=== PATIENT | female | born 1985 ===

== ENCOUNTER 2021-08-15 08:45 | Inpatient (IN) | payer OTHER ==
[~2021-08-15] VITALS: Ht 157.5 cm; Wt 3.6 kg
[2021-08-15] MEDS ORDERED: PRENATABS FA T1 EACH PO (10:42)
[2021-08-15] MEDS ORDERED: CHILDREN'S ASPI81 MG PO (10:42)
[2021-08-15] MEDS ORDERED: IRON PO (10:43)
[2021-08-22] MEDS ORDERED: IRON236 MG PO (13:12)
== END 2021-08-23 14:59 | disposition home or self-care (01) | DRG 785 ==
LOC: SURH 08:45 → O/R 08-20 09:00 → OB/GYN 08-20 09:00
PROVIDERS: ADMIT Specialist; ATTEND Specialist
PROC: 0UB70ZZ Excision of Bilateral Fallopian Tubes, Open Approach (ICD-10-PCS; 2021-08-20)
PROC: 4A1HXFZ Monitoring of Products of Conception, Cardiac Rhythm, External Approach (ICD-10-PCS; 2021-08-20)
PROC: 10D00Z1 Extraction of Products of Conception, Low, Open Approach (ICD-10-PCS; principal; 2021-08-20 12:30)
DX: O34.211 Maternal care for low transverse scar from previous cesarean delivery (principal); O99.824 Streptococcus B carrier state complicating childbirth; Z37.0 Single live birth; Z30.2 Encounter for sterilization; Z3A.39 39 weeks gestation of pregnancy